=== PATIENT | male | born 1950 | race Asian ===

== ENCOUNTER 2019-09-17 12:56 | Inpatient (IN) | payer MEDICARE, MEDICAID ==
[~2019-09-17] VITALS: Ht 160 cm; Wt 77.4 kg
[2019-09-17] MEDS ORDERED: HTN PEG (13:03)
[2019-09-17] MEDS ORDERED: DIABETIC PEG (13:03)
[2019-09-17] MEDS ORDERED: HTN PO (13:04)
[2019-09-17] MEDS ORDERED: DIABETIC PO (13:04)
[2019-09-17 13:50] LABS: GLUCOSE,POINT OF CARE 68 MG/DL (70-110)
[2019-09-17] MEDS ORDERED: ONDANSETRON HCL 4 MG/2 ML VIAL IM ONE (14:15)
[2019-09-17] MEDS ORDERED: MORPHINE SULFATE 4 MG/ML SYRINGE IM ONE (14:15)
[2019-09-17 14:45] LABS: GLUCOSE,POINT OF CARE 112 MG/DL (70-110)
[2019-09-17] MEDS ORDERED: MORPHINE SULFATE 4 MG/ML SYRINGE IVP ONE (15:15)
[2019-09-17 15:53] LABS: BASOPHILS % (AUTO) 0.4 % (0.0-2.0); EOSINOPHILS % (AUTO) 1.5 % (1.0-6.0); HEMATOCRIT 27.9 % (41-53); HEMOGLOBIN 8.8 g/dL (13.5-17.5); LYMPHOCYTES # (AUTO) 0.9 K/uL (1.0-4.8); LYMPHOCYTES % (AUTO) 9.7 % (22.0-44.0); MEAN CORPUSCULAR HEMOGLOBIN 21.8 pg (26.0-34.0); MEAN CORPUSCULAR HGB CONC 31.7 G/dL (31.0-37.0); MEAN CORPUSCULAR VOLUME 69 fL (80-100); MONOCYTES % (AUTO) 10.5 % (2.0-9.0); NEUTROPHILS # (AUTO) 7.1 K/uL (1.8-7.7); NEUTROPHILS % (AUTO) 77.9 % (40.0-70.0); PLATELET COUNT (AUTO) 136 K/uL (150-450); RED BLOOD CELL COUNT(AUTO) 4.06 MIL/uL (4.50-5.90); RED CELL DISTRIBUTION WIDTH 15.7 % (11.5-14.5)
[2019-09-17 16:08] LABS: PROTHROMBIN TIME 10.1 SEC (9.4-11.6)
[2019-09-17 16:14] LABS: ALBUMIN 3.6 g/dL (3.4-5.0); BILIRUBIN,TOTAL 0.3 mg/dL (0.1-1.0); CALCIUM, TOTAL 7.7 mg/dL (8.8-10.5); CREATININE 6.28 mg/dL (0.60-1.30); POTASSIUM 5.9 mmol/L (3.5-5.1); TOTAL PROTEIN, SERUM 7.4 g/dL (6.4-8.2)
[2019-09-17] MEDS ORDERED: CloNIDine HCL 0.1 MG TABLET PO PRN (16:15)
[2019-09-17] MEDS ORDERED: ACETAMINOPHEN 325 MG TABLET PO PRN (16:15)
[2019-09-17] MEDS ORDERED: ZOLPIDEM TARTRATE 5 MG TABLET PO PRN (16:15)
[2019-09-17] MEDS ORDERED: MAGNESIUM HYDROXIDE SUSPENSION 30 ML UDCUP PO PRN (16:15)
[2019-09-17] MEDS ORDERED: DEXTROSE 50%-WATER 25 GM/50 ML SYRINGE IVP PRN (16:15)
[2019-09-17] MEDS ORDERED: ONDANSETRON HCL 4 MG/2 ML VIAL IVP PRN (16:15)
[2019-09-17] MEDS ORDERED: BISACODYL 10 MG RECTAL RECTAL SUPPOSITORY PR PRN (16:15)
[2019-09-17] MEDS ORDERED: SODIUM POLYSTYRENE SULFONATE 15 GM/60 ML SUSPENSION BOTTLE PO ONE (17:00)
[2019-09-17 19:06] LABS: GLUCOSE,POINT OF CARE 130 MG/DL (70-110)
[2019-09-17] MEDS: DOCUSATE SODIUM 100 MG CAPSULE PO SCH (21:00)
[2019-09-17] MEDS: MORPHINE SULFATE 2 MG/ML SYRINGE IVP PRN (21:19)
[2019-09-17 21:21] VITALS: BP 118/57
[2019-09-17 23:25] VITALS: BP 126/63
[2019-09-18] MEDS ORDERED: PNEUMOCOCCAL VACCINE POLYVALENT 0.5 ML VIAL [PPSV23] IM ONE (00:15)
[2019-09-18] MEDS: HEPARIN SODIUM,PORCINE 5,000 UNITS/ML VIAL SQ SCH ×3 (00:37→16:45)
[2019-09-18 04:33] VITALS: BP 125/71
[2019-09-18] MEDS: MORPHINE SULFATE 2 MG/ML SYRINGE IVP PRN ×3 (04:43→14:07)
[2019-09-18] MEDS: DOCUSATE SODIUM 100 MG CAPSULE PO SCH ×2 (07:52→20:11)
[2019-09-18] MEDS: PANTOPRAZOLE SODIUM 40 MG DR TABLET PO SCH (07:52)
[2019-09-18] MEDS: AmLODIPine BESYLATE 5 MG TABLET PO SCH (08:20)
[2019-09-18 08:43] VITALS: BP 146/75
[2019-09-18 11:14] LABS: GLUCOMETER DEV NAME(LOC) 6S.1; GLUCOSE,POINT OF CARE 168 MG/DL (70-110)
[2019-09-18 11:22] LABS: GLUCOMETER DEV NAME(LOC) 6N.2; GLUCOSE,POINT OF CARE 197 MG/DL (70-110)
[2019-09-18 12:18] VITALS: BP 149/74
[2019-09-18] MEDS: INSULIN LISPRO 100 UNITS/ML SQ PRN ×2 (12:20→20:18)
[2019-09-18 12:31] LABS: CALCIUM, TOTAL 7.4 mg/dL (8.8-10.5); CREATININE 6.81 mg/dL (0.60-1.30); POTASSIUM 4.8 mmol/L (3.5-5.1)
[2019-09-18 17:44] LABS: GLUCOMETER DEV NAME(LOC) 6S.1; GLUCOSE,POINT OF CARE 131 MG/DL (70-110)
[2019-09-18 18:19] LABS: APPEARANCE,URINE CLEAR (CLEAR); BILIRUBIN,URINE NEGATIVE (NEGATIVE); GLUCOSE, URINE (UA) NEGATIVE (NEGATIVE); KETONES,URINE NEGATIVE (NEGATIVE); LEUKOCYTE ESTERASE ,URINE NEGATIVE (NEGATIVE); NITRATE,URINE NEGATIVE (NEGATIVE); OCCULT BLOOD,URINE NEGATIVE (NEGATIVE); PROTEIN,URINE SEE CONFIRM (NEGATIVE); UROBILINOGEN,URINE 0.2 mg/dL (<=1.0)
[2019-09-18 18:20] LABS: CREATININE,URINE RANDOM 95.5 mg/dL (30.0-125.0)
[2019-09-18 18:27] LABS: SULFOSALICYLIC ACID,URINE 3+ (Negative)
[2019-09-18 18:30] LABS: BACTERIA,URINE Rare /HPF (None Seen); SQUAMOUS EPITHELIAL CELL,UR Few /LPF (None Seen); WBC,URINE 0-2 /HPF (0-5)
[2019-09-18 18:31] LABS: RBC,URINE 0-2 /HPF (0-2); YEAST,URINE Few /HPF (None Seen)
[2019-09-18] MEDS: HYDROCODONE/ACETAMINOPHEN 5-325 MG TABLET PO PRN (20:33)
[2019-09-18 20:37] LABS: GLUCOMETER DEV NAME(LOC) 6S.1; GLUCOSE,POINT OF CARE 166 MG/DL (70-110)
[2019-09-18 20:49] VITALS: BP 151/69
[2019-09-18 23:52] VITALS: BP 151/63
[2019-09-19] MEDS: HEPARIN SODIUM,PORCINE 5,000 UNITS/ML VIAL SQ SCH ×3 (00:16→16:24)
[2019-09-19] MEDS: MORPHINE SULFATE 2 MG/ML SYRINGE IVP PRN ×2 (00:17→07:56)
[2019-09-19 04:00] VITALS: BP 148/62
[2019-09-19] MEDS: HYDROCODONE/ACETAMINOPHEN 5-325 MG TABLET PO PRN ×2 (06:00→17:24)
[2019-09-19] MEDS: INSULIN LISPRO 100 UNITS/ML SQ PRN ×3 (06:11→17:23)
[2019-09-19 06:38] LABS: GLUCOMETER DEV NAME(LOC) 6S.1; GLUCOSE,POINT OF CARE 163 MG/DL (70-110)
[2019-09-19 07:01] LABS: BASOPHILS % (AUTO) 0.3 % (0.0-2.0); EOSINOPHILS % (AUTO) 1.8 % (1.0-6.0); HEMATOCRIT 22.9 % (41-53); HEMOGLOBIN 7.5 g/dL (13.5-17.5); LYMPHOCYTES # (AUTO) 1.3 K/uL (1.0-4.8); LYMPHOCYTES % (AUTO) 18.4 % (22.0-44.0); MEAN CORPUSCULAR HEMOGLOBIN 22.4 pg (26.0-34.0); MEAN CORPUSCULAR HGB CONC 32.6 G/dL (31.0-37.0); MEAN CORPUSCULAR VOLUME 69 fL (80-100); MONOCYTES # (AUTO) 1.2 K/uL (0.1-1.0); MONOCYTES % (AUTO) 17.1 % (2.0-9.0); NEUTROPHILS # (AUTO) 4.3 K/uL (1.8-7.7); NEUTROPHILS % (AUTO) 62.4 % (40.0-70.0); PLATELET COUNT (AUTO) 106 K/uL (150-450); RED BLOOD CELL COUNT(AUTO) 3.33 MIL/uL (4.50-5.90); RED CELL DISTRIBUTION WIDTH 14.8 % (11.5-14.5)
[2019-09-19 07:09] LABS: % IRON SATURATION 22.2 % (30-44)
[2019-09-19 07:30] LABS: CALCIUM, TOTAL 7.5 mg/dL (8.8-10.5); CREATININE 6.54 mg/dL (0.60-1.30); PHOSPHORUS 7.5 mg/dL (2.5-4.9); POTASSIUM 4.5 mmol/L (3.5-5.1)
[2019-09-19] MEDS: DOCUSATE SODIUM 100 MG CAPSULE PO SCH (07:55)
[2019-09-19] MEDS: PANTOPRAZOLE SODIUM 40 MG DR TABLET PO SCH (07:55)
[2019-09-19] MEDS: AmLODIPine BESYLATE 5 MG TABLET PO SCH (07:56)
[2019-09-19 08:22] VITALS: BP 139/66
[2019-09-19 11:57] VITALS: BP 146/73
[2019-09-19 12:17] LABS: GLUCOMETER DEV NAME(LOC) 6N.2; GLUCOSE,POINT OF CARE 176 MG/DL (70-110)
[2019-09-19 15:50] VITALS: BP 155/71
[2019-09-19] MEDS ORDERED: PERCT PO ×2 (16:00→21:42)
[2019-09-19] MEDS ORDERED: AMLO5TAB9 PO (16:00)
[2019-09-19 17:32] LABS: GLUCOMETER DEV NAME(LOC) 6N.2; GLUCOSE,POINT OF CARE 148 MG/DL (70-110)
[2019-09-19 17:36] LABS: CREATININE,URINE 103.2 mg/dL (30.0-125.0)
[2019-09-19 17:39] LABS: CREATININE,SERUM FOR CRCL 6.54 mg/dL (0.60-1.30)
[2019-09-19] MEDS ORDERED: OXYC-38 PO (21:46)
== END 2019-09-19 18:50 | disposition home or self-care (01) | DRG 562 ==
LOC: EMS 13:13 → 6S 16:13 → 6N 09-18 23:00
PROVIDERS: ADMIT Internal Medicine; ATTEND Internal Medicine
DX: S42.292A Other displaced fracture of upper end of left humerus, initial encounter for closed fracture (principal); N18.6 End stage renal disease; S22.42XA Multiple fractures of ribs, left side, initial encounter for closed fracture; N17.9 Acute kidney failure, unspecified; I12.0 Hypertensive chronic kidney disease with stage 5 chronic kidney disease or end stage renal disease; S42.392A Other fracture of shaft of left humerus, initial encounter for closed fracture; S42.212A Unspecified displaced fracture of surgical neck of left humerus, initial encounter for closed fracture; E87.5 Hyperkalemia; E11.22 Type 2 diabetes mellitus with diabetic chronic kidney disease; D63.1 Anemia in chronic kidney disease; E11.319 Type 2 diabetes mellitus with unspecified diabetic retinopathy without macular edema; E78.00 Pure hypercholesterolemia, unspecified; Z79.899 Other long term (current) drug therapy; W11.XXXA Fall on and from ladder, initial encounter; Y93.89 Activity, other specified; Y92.89 Other specified places as the place of occurrence of the external cause; Y99.8 Other external cause status; S42.002A Fracture of unspecified part of left clavicle, initial encounter for closed fracture; Z20.828 Contact with and (suspected) exposure to other viral communicable diseases
CPT/HCPCS: 70450; 71250; 72125; 76770; 81050; 82570; 82575; 82728; 83540; 83550; 83735; 83970; 84100; 84156; 84166; 84300; 84540; 86850; 86900; 86901; 87081; 93005; 93306; J1644; J2270; J2405

== ENCOUNTER 2019-10-14 16:16 | Emergency (ER) | payer MEDICAID, MEDICARE ==
[~2019-10-14] VITALS: Ht 161.3 cm; Wt 72.7 kg
[~2019-10-14 16:16] MED LIST: AMLO5TAB9 PO; DIABETIC PO; OXYC-38 PO
[2019-10-14] MEDS ORDERED: 0.9% SODIUM CHLORIDE 10 ML SYRINGE IVP PRN (17:30)
[2019-10-14 17:42] LABS: GLUCOSE,POINT OF CARE 182 MG/DL (70-110)
[2019-10-14] MEDS ORDERED: ACETAMINOPHEN 325 MG TABLET PO ONE (18:30)
[2019-10-14 18:33] LABS: BASOPHILS % (AUTO) 0.3 % (0.0-2.0); EOSINOPHILS % (AUTO) 0.1 % (1.0-6.0); HEMATOCRIT 27.6 % (41-53); HEMOGLOBIN 8.4 g/dL (13.5-17.5); LYMPHOCYTES # (AUTO) 0.7 K/uL (1.0-4.8); LYMPHOCYTES % (AUTO) 4.9 % (22.0-44.0); MEAN CORPUSCULAR HEMOGLOBIN 22.1 pg (26.0-34.0); MEAN CORPUSCULAR HGB CONC 30.5 G/dL (31.0-37.0); MEAN CORPUSCULAR VOLUME 73 fL (80-100); MONOCYTES # (AUTO) 1.3 K/uL (0.1-1.0); MONOCYTES % (AUTO) 9.9 % (2.0-9.0); NEUTROPHILS # (AUTO) 11.4 K/uL (1.8-7.7); NEUTROPHILS % (AUTO) 84.8 % (40.0-70.0); PLATELET COUNT (AUTO) 242 K/uL (150-450); RED CELL DISTRIBUTION WIDTH 17.8 % (11.5-14.5)
[2019-10-14 18:39] LABS: APPEARANCE,URINE CLEAR (CLEAR); BILIRUBIN,URINE NEGATIVE (NEGATIVE); GLUCOSE, URINE (UA) NEGATIVE (NEGATIVE); KETONES,URINE NEGATIVE (NEGATIVE); LEUKOCYTE ESTERASE ,URINE NEGATIVE (NEGATIVE); NITRATE,URINE NEGATIVE (NEGATIVE); OCCULT BLOOD,URINE NEGATIVE (NEGATIVE); PROTEIN,URINE SEE CONFIRM (NEGATIVE); UROBILINOGEN,URINE 0.2 mg/dL (<=1.0)
[2019-10-14 18:49] LABS: PROTHROMBIN TIME 10.7 SEC (9.4-11.6)
[2019-10-14 18:50] LABS: SULFOSALICYLIC ACID,URINE 4+ (Negative)
[2019-10-14 18:52] LABS: BACTERIA,URINE None Seen /HPF (None Seen); RBC,URINE None Seen /HPF (0-2); SQUAMOUS EPITHELIAL CELL,UR Rare /LPF (None Seen); WBC,URINE 0-2 /HPF (0-5)
[2019-10-14 18:57] LABS: CALCIUM, TOTAL 8.2 mg/dL (8.8-10.5); CREATININE 4.3 mg/dL (0.60-1.30)
[2019-10-14 19:03] LABS: ALBUMIN 3.2 g/dL (3.4-5.0); BILIRUBIN,TOTAL 0.5 mg/dL (0.1-1.0); TOTAL PROTEIN, SERUM 8.2 g/dL (6.4-8.2)
[2019-10-14 19:30] LABS: LACTIC ACID 1.2 mmol/L (0.4-2.0)
[2019-10-14 22:07] VITALS: BP 146/60
== END 2019-10-14 22:18 | disposition home or self-care (01) ==
LOC: EMS 16:19
DX: I12.0 Hypertensive chronic kidney disease with stage 5 chronic kidney disease or end stage renal disease (principal); E11.22 Type 2 diabetes mellitus with diabetic chronic kidney disease; N18.6 End stage renal disease; R50.9 Fever, unspecified; M79.10 Myalgia, unspecified site; Z20.828 Contact with and (suspected) exposure to other viral communicable diseases; Z99.2 Dependence on renal dialysis
CPT/HCPCS: 36415; 71045; 80053; 81001; 82962; 83605; 83880; 84484; 85025; 85610; 85730; 87040; 87205; 93005; 99285; U0003